=== PATIENT | female | born 1990 | race American Indian/Alaskan Native ===

== ENCOUNTER 2017-11-09 05:12 | Emergency (ER) | payer MEDICAID ==
[~2017-11-09] VITALS: Ht 167.6 cm; Wt 65.9 kg
[2017-11-09 05:19] VITALS: BP 118/81
[2017-11-09] MEDS ORDERED: proparacaine 0.5% ophthalmic drops 15ml EACHEYE ONE (06:20)
[2017-11-09] MEDS ORDERED: CIPR2.5D18 EACHEYE (06:39)
[2017-11-09] MEDS ORDERED: erythromycin ophthalmic ointment 1gm tube LEFTEYE ONE (06:40)
== END 2017-11-09 06:58 | disposition home or self-care (01) ==
LOC: ER 05:14
DX: S05.02XA Injury of conjunctiva and corneal abrasion without foreign body, left eye, initial encounter (principal); X58.XXXA Exposure to other specified factors, initial encounter; Y93.89 Activity, other specified; Y92.89 Other specified places as the place of occurrence of the external cause; Y99.9 Unspecified external cause status
CPT/HCPCS: 99283

== ENCOUNTER 2018-04-04 13:34 | Emergency (ER) | payer MEDICAID ==
[~2018-04-04] VITALS: Ht 167.6 cm; Wt 65.0 kg
[2018-04-04 13:44] VITALS: BP 126/82
[2018-04-04] MEDS ORDERED: HYDROcodone/acetaminophen 10/325mg tab PO ONE (14:35)
[2018-04-04] MEDS ORDERED: LIDOcaine 1% 30ml preserv. free vial IJ ONE (14:35)
[2018-04-04] MEDS ORDERED: LIDOcaine 1% (10mg/ml) 2ml vial SQ ONE (14:45)
[2018-04-04] MEDS ORDERED: HYDR-565 PO (15:15)
== END 2018-04-04 15:28 | disposition home or self-care (01) ==
LOC: ER 13:35
DX: S62.317A Displaced fracture of base of fifth metacarpal bone, left hand, initial encounter for closed fracture (principal); Z79.899 Other long term (current) drug therapy; W01.0XXA Fall on same level from slipping, tripping and stumbling without subsequent striking against object, initial encounter; Y93.89 Activity, other specified; Y92.89 Other specified places as the place of occurrence of the external cause; Y99.8 Other external cause status
CPT/HCPCS: 26742; 73130; 99284; A4565; A6449; J3490; 29125

== ENCOUNTER 2018-04-10 09:59 | Outpatient (CLI) | payer MEDICAID ==
[~2018-04-10 09:59] MED LIST: HYDR-565 PO
== END 2018-04-10 11:25 | disposition home or self-care (01) ==
LOC: ORTHO 09:59
PROVIDERS: ATTEND Nurse Practitioner Family
DX: S62.647A Nondisplaced fracture of proximal phalanx of left little finger, initial encounter for closed fracture (principal); J45.909 Unspecified asthma, uncomplicated; W01.0XXA Fall on same level from slipping, tripping and stumbling without subsequent striking against object, initial encounter; Y93.89 Activity, other specified; Y92.89 Other specified places as the place of occurrence of the external cause; Y99.8 Other external cause status
CPT/HCPCS: 99213

== ENCOUNTER 2018-05-01 10:24 | Outpatient (CLI) | payer MEDICAID ==
[2018-05-01 10:35] VITALS: BP 97/50
== END 2018-05-01 11:30 | disposition home or self-care (01) ==
LOC: ORTHO 10:24
PROVIDERS: ATTEND Nurse Practitioner Family
DX: S62.647G Nondisplaced fracture of proximal phalanx of left little finger, subsequent encounter for fracture with delayed healing (principal); J45.909 Unspecified asthma, uncomplicated; X58.XXXD Exposure to other specified factors, subsequent encounter
CPT/HCPCS: 73130; 99213

== ENCOUNTER 2018-05-22 10:08 | Outpatient (CLI) | payer MEDICAID ==
[2018-05-22 09:31] VITALS: BP 103/58
== END 2018-05-22 10:13 | disposition home or self-care (01) ==
LOC: ORTHO 10:08
PROVIDERS: ATTEND Nurse Practitioner Family
DX: S62.647G Nondisplaced fracture of proximal phalanx of left little finger, subsequent encounter for fracture with delayed healing (principal); J45.909 Unspecified asthma, uncomplicated; X58.XXXD Exposure to other specified factors, subsequent encounter
CPT/HCPCS: 73130; 99213